=== PATIENT | female | born 1955 | race Caucasian/White ===

== ENCOUNTER 2023-01-19 18:33 | Emergency (ER) | payer MEDICARE ==
[~2023-01-19] VITALS: Ht 162 cm; Wt 68.0 kg
--- NOTE | 2023-01-19 18:40 | ED Respiratory ---
General Chief Complaint: Respiratory Problems Stated Complaint: SOB Nursing Triage Note: ARRIVED VIA AMB TO ROOM WITH COMPLAINTS OF SOA. PT CRYING ET SHAKING. HAS A HISTORY OF ANXIETY. PT STATES SHE LIVES IN [place] AND IS ON HER WAY TO [place]. Source: patient Exam Limitations: no limitations History of Present Illness Date Seen by Provider: Jan 19, 2023 Time Seen by Provider: 18:35 Initial Comments 67-year-old female with past medical history of asthma and tobacco use coming in due to feeling short of breath. She states she felt like she started to have anxiety, felt like she could not catch her breath, and this occurred roughly 45 minutes prior to arrival. She believes that her allergies has been acting up, and that typically makes her asthma worse as well. Started having a mild cough when this occurred. Denies any fever, congestion, chest pain, abdominal pain, nausea, vomiting, diarrhea, weakness, numbness, rash, or any other concerns. No prior history of DVT or PE, does not use hormones, no lower extremity swelling or pain, no recent surgery, no hemoptysis, no recent long travel. Allergies and Home Medications Allergies Coded Allergies: Egg Derived (Verified Allergy, Unknown, 01/19/23) codeine (Verified Allergy, Unknown, 01/19/23) Patient Home Medication List Home Medication List Reviewed: Yes Review of Systems Review of Systems Constitutional: No fever EENTM: no symptoms reported Respiratory: see HPI Cardiovascular: no symptoms reported Gastrointestinal: no symptoms reported Genitourinary: no symptoms reported Musculoskeletal: no symptoms reported Skin: no symptoms reported Psychiatric/Neurological: See HPI Hematologic/Lymphatic: No Symptoms Reported Past Mgnzufl-Hfmbyn-Ehaxsn Hx Patient Social History Tobacco Use?: Yes Tobacco type used: Cigarettes Past Medical History Surgery/Hospitalization HX: carpal tunnel Surgeries: Yes Orthopedic Physical Exam Vital Signs - First Documented 01/19/23 18:36 Temp 36.6 Pulse 97 Resp 20 B/P (MAP) 97/48 (64) Pulse Ox 99 O2 Delivery Room Air Capillary Refill : Less Than 3 Seconds Height: '" Weight: lbs. oz. kg; 25.00 BMI Method: General Appearance: WD/WN, other (anxious) Eyes: Bilateral Eye Normal Inspection HEENT: PERRL/EOMI, normal ENT inspection, pharynx normal Neck: non-tender, full range of motion, supple, normal inspection Respiratory: chest non-tender, lungs clear, normal breath sounds, no respiratory distress, no accessory muscle use Cardiovascular: regular rate, rhythm, no edema, no murmur Gastrointestinal: normal bowel sounds, non tender, soft; No distended, No g uarding, No rebound Extremities: normal range of motion, non-tender, normal inspection, no pedal edema, no calf tenderness, normal capillary refill Neurologic/Psychiatric: no motor/sensory deficits, alert, normal mood/affect Skin: normal color, warm/dry Progress/Results/Core Measures Suspected Sepsis SIRS Temperature: Pulse: 97 Respiratory Rate: 20 Blood Pressure 97 /48 Mean: 64 Results/Orders My Orders Orders - BERNA PILLAI MD Ekg Tracing (01/19/23 18:40) Monitor-Rhythm Ecg Trace Only (01/19/23 18:40) Chest 1 View Ap/Pa Only (01/19/23 18:40) Ipratropium/Albuterol Inh Soln (Ipratrop (01/19/23 18:45) Lorazepam Injection (Lorazepam Injection (01/19/23 18:45) Medications Given in ED Current Medications Medications Dose Ordered Sig/Harriett Route Start Time Stop Time Status Last Admin Dose Admin Albuterol/ Ipratropium 3 ml ONCE ONCE INH 01/19/23 18:45 01/19/23 18:46 DC 01/19/23 18:47 3 ML Lorazepam 1 mg ONCE ONCE IM 01/19/23 18:45 01/19/23 18:46 DC 01/19/23 18:44 1 MG Vital Signs/I&O 01/19/23 18:36 Temp 36.6 Pulse 97 Resp 20 B/P (MAP) 97/48 (64) Pulse Ox 99 O2 Delivery Room Air Capillary Refill : Less Than 3 Seconds Blood Pressure Mean: 64 Progress Note : Progress Note 67-year-old female presenting due to shortness of breath. ABCs were intact and vitals were stable on presentation. Specifically, heart rate is in the 80s, oxygen saturation is 99 to 100%, and lungs are clear. EKG ordered and interpreted by me showing no acute ischemic changes. Chest x-ray ordered and interpreted by me showing no pneumothorax, normal cardiac silhouette, no obvious pneumonia. She was given a DuoNeb as a trial given her history of asthma and cigarette smoking. She notes subjectively that she feels immensely better after the DuoNeb. She also notes that she has a lot of anxiety at baseline, also given IM Ativan as well. She is low risk for PE per [place] criteria, has no clinical signs of a DVT on exam, and I think a PE would be very unlikely. Patient is not tachycardic, normal capillary refill, skin is pink and warm, no bleeding subjectively and overall does not appear anemic. Blood work therefore not obtained. Patient was never breathing hard and never really had any type of increase in work of sheela thing. She would go through periods of rapid breathing followed by slow breathing when she would calm down. Much improved after the Ativan. I believe she is otherwise stable for discharge with outpatient follow-up. She was sent home with strict return precautions. ECG Initial ECG Impression Date: Jan 19, 2023 Initial ECG Impression Time: 18:41 Initial ECG Rate: 87 Initial ECG Rhythm: Normal Sinus Comment Narrow QRS, normal axis, no significant ST changes or T wave abnormalities Diagnostic Imaging Diagonstic Imaging: Xray (chest) Comments [facility] [place], [place] NAME: [facility] REC#: [id number] PT STATUS: REG ER : 1955 PHYSICIAN: BERNA PILLAI MD ADMIT DATE: 01/19/23/ER FS Draft Date of Exam:01/19/23 CHEST 1 VIEW AP/PA ONLY EXAMINATION: Chest 1 view HISTORY: Short of breath COMPARISON: None available. FINDINGS: The lungs are clear without edema or pneumonia. No pleural effusion or pneumothorax. Heart size is normal. IMPRESSION: 1. Clear lungs. Dictated on workstation # [id number] Dict: 01/19/231853 Trans: 01/19/231853 CV [id number] Interpreted by: JAMEEL SIMMONS MD Electronically signed by: Departure Impression Primary Impression: Dyspnea Qualified Codes: R06.02 - Shortness of breath Disposition: 01 HOME, SELF-CARE Condition: Stable Departure-Patient Inst. Decision time for Depature: 19:30 Referrals: NO,LOCAL PHYSICIAN (PCP/Family) Primary Care Physician Patient Instructions: Shortness of Breath, Adult ED Add. Discharge Instructions: We are not seeing any evidence of life-threatening causes of your shortness of breath which is reassuring. Your lungs sound clear and your chest x-ray looks good. This could have been an asthma attack due to your allergies as you stated. Please follow-up with your regular doctor back home if you are not seeing improvement in the next couple of days. BERNA PILLAI MD Jan 19, 2023 18:40
[2023-01-19] MEDS ORDERED: RT-Ipratropium/Albuterol NEB 3 ML VIAL INH ONE (18:45)
--- NOTE | 2023-01-19 18:55 | Diagnostic Imaging Report ---
EXAMINATION: Chest 1 view HISTORY: Short of breath COMPARISON: None available. FINDINGS: The lungs are clear without edema or pneumonia. No pleural effusion or pneumothorax. Heart size is normal. IMPRESSION: 1. Clear lungs. Dictated by: Dictated on workstation # [id number]
[2023-01-19] MEDS ORDERED: RT-ALBUTEROL HFA 8.5 GM INHALER IH STA (19:19)
[2023-01-19 19:21] VITALS: BP 129/65
== END 2023-01-19 19:21 | disposition home or self-care (01) ==
LOC: ER FS 18:36
DX: R06.00 Dyspnea, unspecified (principal); F17.210 Nicotine dependence, cigarettes, uncomplicated; Z87.09 Personal history of other diseases of the respiratory system
CPT/HCPCS: 71045; 93005